=== PATIENT | male | born 1960 | race Caucasian/White ===

== ENCOUNTER 2022-02-19 17:45 | Inpatient (IN) ==
[2022-02-19] MEDS ORDERED: Naloxone 0.4 MG/ML INJ IVP PRN (20:29)
[2022-02-19] MEDS ORDERED: Ondansetron 4 MG/2 ML VIAL IVP PRN (21:08)
[2022-02-19] MEDS ORDERED: Melatonin 3 MG TABLET PO PRN (21:08)
[2022-02-19] MEDS ORDERED: Acetaminophen 325 MG TABLET PO PRN (21:08)
[2022-02-20] MEDS ORDERED: *HR* Dextrose 50 % in Water (Syg) 50 ML SYRINGE IVP PRN (04:15)
[2022-02-20] MEDS ORDERED: D5% in Water 1,000 ML IVC PRN (04:15)
[2022-02-20] MEDS ORDERED: Dextrose Gel 15 GM/37.5 ML TUBE PO PRN ×2 (04:15)
[2022-02-20] MEDS: Ipratropium/Albuterol Neb 3 ML IH SCH ×4 (04:16→21:11)
[2022-02-20 09:45] LABS: VBG HCO3 50 mEq/L (21-27); VBG PCO2 101 mmHg (41-51); VBG PO2 53 mmHg (25-50)
[2022-02-20] MEDS: predniSONE 20 MG TABLET PO SCH (09:54)
[2022-02-20] MEDS: Nicotine 21 MG PATCH.TD24 TD SCH (09:54)
[2022-02-20] MEDS: *HR* OxyCODONE Immed Rel 5 MG TABLET PO PRN ×2 (10:04→17:36)
[2022-02-20] MEDS: Budesonide/Formoterol 160/4.5 1 PUFF INH IH SCH ×2 (10:39→21:12)
[2022-02-20] MEDS: Azithromycin 250 MG TABLET PO SCH (12:40)
[2022-02-20] MEDS: *HR* HYDROcodone/Acet 5/325 mg TABLET PO PRN (12:40)
[2022-02-21] MEDS: Ipratropium/Albuterol Neb 3 ML IH SCH ×3 (04:31→15:22)
[2022-02-21] MEDS: Nicotine 21 MG PATCH.TD24 TD SCH (07:59)
[2022-02-21] MEDS: Azithromycin 250 MG TABLET PO SCH (07:59)
[2022-02-21] MEDS: *HR* HYDROcodone/Acet 5/325 mg TABLET PO PRN (07:59)
[2022-02-21] MEDS: predniSONE 20 MG TABLET PO SCH (07:59)
[2022-02-21] MEDS: Budesonide/Formoterol 160/4.5 1 PUFF INH IH SCH (09:43)
[2022-02-21 11:03] VITALS: BP 125/76; PULSE 87; TEMP 98; O2SAT 95
[2022-02-21] MEDS: *HR* OxyCODONE Immed Rel 5 MG TABLET PO PRN (15:37)
== END 2022-02-21 16:26 | disposition hospice, home (50) | DRG 189 ==
LOC: 2ANU → SUATTDRO 19:38 → 2ANU 02-20 18:15
PROVIDERS: ADMIT Internal Medicine; ATTEND Internal Medicine